=== PATIENT | female | born 1955 | race Caucasian/White ===

== ENCOUNTER → 2016-09-12 | Outpatient (REF) | LOC: ZLAB.WCH 10:07 | DX: Z01.89 Encounter for other specified special examinations (principal) ==

== ENCOUNTER → 2017-11-20 | Outpatient (REF) ==
[2017-11-20 18:18] LABS: IRON,SERUM 92 ug/dL (35-150)
[2017-11-20 18:24] LABS: TOTAL IRON BINDING CAPACITY 398 ug/dL (265-497)
[2017-11-20 18:44] LABS: C-REACTIVE PROTEIN < 0.5 mg/dL (0.0-0.9)
[2017-11-20 18:52] LABS: FERRITIN 21 ng/mL (11-264)
== END ==
LOC: ZLAB.WCH 17:47
PROVIDERS: Internal Medicine
DX: Z01.89 Encounter for other specified special examinations (principal)

== ENCOUNTER → 2018-12-16 | Outpatient (REF) | LOC: ZLAB.WCH 16:06 | DX: Z01.89 Encounter for other specified special examinations (principal) ==

== ENCOUNTER → 2022-01-09 | Outpatient (CLI) | payer BC ==
[2022-01-09 10:35] LABS: BASO # 0.1 K/mm3 (0.0-0.2); BASO % 0.8 % (0.0-2.0); EOS # 0.1 K/mm3 (0.0-0.7); EOS % 1.5 % (0.0-4.0); GRAN # 4.9 K/mm3 (1.4-6.5); GRAN % 61.5 % (42.2-75.2); HEMATOCRIT 41.3 % (37.0-47.0); HEMOGLOBIN 12.9 g/dl (12.5-16.0); LYMPH # 2.2 K/mm3 (1.2-3.4); LYMPH % 27.5 % (20.0-51.0); MEAN CELL VOLUME 89 fl (80.0-100.0); MEAN CORPUSCULAR HEMOGLOBIN 28 pg (27-31); MEAN CORPUSCULAR HGB CONC 31 g/dl (33.0-37.0); MEAN PLATELET VOLUME 10.6 fl (7.4-10.4); MONO # 0.7 K/mm3 (0.1-0.6); MONO % 8.3 % (1.7-9.3); PLATELET COUNT 227 K/mm3 (130-400); RED BLOOD COUNT 4.63 M/mm3 (4.10-5.30); REDCELL DISTRIBUTION WIDTH-CV 13.6 % (11.5-14.5)
[2022-01-09 10:46] LABS: ALBUMIN 4.2 gm/dL (3.4-4.8); BILIRUBIN,TOTAL 0.3 mg/dL (0.2-1.2); CALCIUM 9.2 mg/dL (8.4-10.2); CREATININE, serum 0.85 mg/dL (0.57-1.11); POTASSIUM 4.5 mmol/L (3.5-4.5); TOTAL PROTEIN 7.7 gm/dL (6.2-8.1)
== END ==
LOC: COL.LAB 09:57
PROVIDERS: Psychiatry & Neurology Neurology
DX: G35 Multiple sclerosis (principal); Z76.89 Persons encountering health services in other specified circumstances

== ENCOUNTER → 2022-01-16 | Outpatient (CLI) | payer BC | LOC: COL.LAB 07:33 | DX: E03.9 Hypothyroidism, unspecified (principal) ==

== ENCOUNTER → 2022-12-05 | Outpatient (RCR) | payer BC | LOC: MKS.ESL.PT | DX: M54.41 Lumbago with sciatica, right side (principal) ==